=== PATIENT | female | born 1965 | race Caucasian/White ===

== ENCOUNTER 2017-04-17 15:46 | Outpatient (CLI) | payer BC ==
[2017-04-17 16:03] LABS: BASOPHILS % (AUTO) 0.9 %; EOSINOPHILS # (AUTO) 0.1 10^3/uL (0.0-0.7); EOSINOPHILS % (AUTO) 1.2 %; HCT - HEMATOCRIT 38.1 % (37.0-47.0); HGB - HEMOGLOBIN 12.1 g/dL (12.0-16.0); LYMPHOCYTES # (AUTO) 1.3 10^3/uL (1.5-3.5); LYMPHOCYTES % (AUTO) 23.1 %; MEAN CORPUSCULAR HEMOGLOBIN 27.2 pg (27.0-31.0); MEAN CORPUSCULAR HGB CONC 31.9 g/dL (32.0-36.0); MEAN CORPUSCULAR VOLUME 85.3 fL (81.0-99.0); MEAN PLATELET VOLUME 8.1 fL (7.9-10.8); MONOCYTES # (AUTO) 0.6 10^3/uL (0.0-1.0); MONOCYTES % (AUTO) 10.9 %; NEUTROPHILS # (AUTO) 3.5 10^3/uL (1.5-6.6); NEUTROPHILS % (AUTO) 63.9 %; NUCLEATED RED BLOOD CELLS AUTO 0.1 /100WBC; RED BLOOD COUNT 4.46 10^6/uL (4.20-5.40); RED CELL DISTRIBUTION WIDTH 13.5 % (12.0-15.0); UNCORRECTED WHITE BLOOD COUNT 5.4 x10^3/uL; WHITE BLOOD COUNT 5.4 x10^3/uL (4.8-10.8)
[2017-04-17 16:15] LABS: ALBUMIN/GLOBULIN RATIO 1.7 (1.0-2.2); BILIRUBIN,TOTAL 0.6 mg/dL (0.2-1.0); CALCIUM 9.5 mg/dL (8.5-10.3); CREATININE 0.8 mg/dL (0.4-1.0); POTASSIUM 3.7 mmol/L (3.5-5.0); TOTAL PROTEIN 7.3 g/dL (6.7-8.2)
[2017-04-17] MEDS ORDERED: IOPAMIDOL-300 100 ML VIAL IVP ONE (17:11)
[2017-04-17] MEDS ORDERED: IOPAMIDOL-300 50 ML VIAL PO ONE (17:11)
--- NOTE | 2017-04-17 18:41 | CT Preliminary Report ---
Exam: CT Abdomen/Pelvis W/ IMPRESSION: 1. Colonic diverticulosis. 2. No acute abnormality to account for this lady's presenting symptoms. RAD[facility] The above findings were discussed with Suleiman Lombardo, by Dr. Michell Toth at 18:43 hrs on 04/17/17. SITE ID: [id number]
--- NOTE | 2017-04-17 19:24 | CT Report ---
EXAM: CT ABDOMEN AND PELVIS EXAM DATE: 04/17/2017 05:19 PM. CLINICAL HISTORY: History of diverticulitis. Patient presents with left lower quadrant pain. COMPARISONS: 12/07/2015.. TECHNIQUE: Routine helical CT imaging was performed through the abdomen and pelvis. IV contrast: 100 mL Isovue-300. Enteric contrast: Yes. Reconstructions: Coronal and sagittal. In accordance with CT protocol optimization, one or more of the following dose reduction techniques w ere utilized for this exam: automated exposure control, adjustment of mA and/or KV based on patient s ize, or use of iterative reconstructive technique. FINDINGS: Lung Bases: Unremarkable. Liver: Normal. No masses. Gallbladder/Bile Ducts: Unremarkable. Spleen: Normal. Pancreas: Normal. Adrenal Glands: Normal. Kidneys: 1 x 2 cm focal cortical scarring left kidney. Bilateral extrarenal pelvises, right greater t wing left. No masses or hydronephrosis. Peritoneal Cavity/Bowel: Diverticula off the colon. Oral contrast extends through to the distal ileum . No free fluid, free air or adenopathy. No masses or acute inflammatory process. The appendix is wel l visualized and normal. Pelvic Organs: 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. No fluid. No stones in the small caliber urinary bladder. No adnexal mas s lesions. Vasculature: No aneurysms or other significant abnormality. Bones: No significant abnormality. Other: None. IMPRESSION: 1. Colonic diverticulosis. 2. No acute abnormality to account for this lady's presenting symptoms. RADIA The above findings were discussed with Suleiman Lombardo, by Dr. Michell Toth at 18:43 hrs on 04/17/17. Referring Provider Line: [phone] SITE ID: [id number]
== END 2017-04-17 15:47 | disposition home or self-care (01) ==
LOC: DI 15:46
PROVIDERS: ATTEND Physician Assistant Medical
DX: R10.32 Left lower quadrant pain (principal); K57.30 Diverticulosis of large intestine without perforation or abscess without bleeding
CPT/HCPCS: 36415; 74177; 80053; 85025; Q9967

== ENCOUNTER 2017-06-19 15:01 | Outpatient (CLI) | payer BC ==
--- NOTE | 2017-06-20 10:05 | Ultrasound Report ---
RIGHT UPPER QUADRANT ULTRASOUND: 06/19/2017 CLINICAL INDICATION: Abdominal pain. TECHNIQUE: Real-time scanning was performed with sales account representative static images obtained. FINDINGS: The liver measures 16.1 cm. An echogenic 0.9 cm nodule is noted in the left lobe, compatib le with a small hemangioma. No suspicious solid hepatic lesion is identified. No intrahepatic biliary dilatation is present. The common bile duct measures 5 mm. The gallbladder is normal. The right kidn ey measures 10.4 cm, and demonstrates an 1.9 cm cyst. No free fluid is present. IMPRESSION: INCIDENTAL HEPATIC HEMANGIOMA. NO EVIDENCE OF CHOLELITHIASIS OR BILIARY OBSTRUCTION. JOB #: [id number] EXT JOB #:[id number]
== END 2017-06-19 15:02 | disposition home or self-care (01) ==
LOC: DI 15:01
PROVIDERS: ATTEND Physician Assistant Medical
DX: R10.11 Right upper quadrant pain (principal)
CPT/HCPCS: 76705

== ENCOUNTER 2017-06-21 09:12 | Day surgery (SDC) | payer BC ==
[2017-06-21] MEDS ORDERED: LACTATED RINGERS 1,000 ML IV ONE (09:42)
--- NOTE | 2017-06-21 11:02 | HISTORY & PHYSICAL EXAMINATION ---
HPI - History of Present Illness HPI Comment/Other: Patient is here for dark stools and chronic GERD. Current Meds: NEXIUM 20 MG CPDR (ESOMEPRAZOLE MAGNESIUM) Take one tablet by mouth daily, one- half hour before evening meal SINGULAIR 10 MG TABS (MONTELUKAST SODIUM) Take one tablet by mouth daily VOLTAREN 1 % GEL (DICLOFENAC SODIUM) Apply 2 grams to right wrist four times daily as needed for pain * THUMB SPICA/TENOSYNOVITIS SPLINT Right wrist, M65.4, #1, length of use: 6 months. RANITIDINE HCL 150 MG TABS (RANITIDINE HCL) Take one tablet by mouth twice daily CARAFATE 1 GM TABS (SUCRALFATE) Mix one tablet in water to make slurry and then drink before meals and bedtime, four times a day BREO ELLIPTA 100-25 MCG/INH INH AEPB (FLUTICASONE FUROATE-VILANTEROL) One puff daily NASACORT ALLERGY 24HR 55 MCG/ACT NASAL AERO (TRIAMCINOLONE ACETONIDE) Inhale one spray each nostril twice daily ALBUTEROL SULFATE 0.083 % NEBU (ALBUTEROL SULFATE) Use one ampule via nebulizer every four hrs as needed for wheeze VENTOLIN HFA 108 (90 BASE) MCG/ACT INH AERS (ALBUTEROL SULFATE) Inhale two actuations every four hours as needed for wheeze OXYBUTYNIN CHLORIDE 5 MG TABS (OXYBUTYNIN CHLORIDE) Take one tablet by mouth twice daily as needed for overactive bladder symptoms CALTRATE 600+D 600-400 MG-UNIT TABS (CALCIUM CARBONATE-VITAMIN D) one po twice a day VITAMIN D 2000 UNIT TABS (CHOLECALCIFEROL) 1 po daily Allergies: FOSAMAX (Critical) VICODIN (Critical) * IPATROPIUM (Severe) Past Medical History: Reviewed history from 12/09/2013 and no changes required: Fosamax causes chest pain Vicodin - patient does not recall reaction SOB Asthma Frequent Indigestion Heartburn Acid Reflux Prednisone use Depression Anxiety Panic Attacks Claustrophobia Hx bronchitis, possible asthma as child Past Surgical History: Reviewed history from 08/28/2013 and no changes required: Tonsillectomy as a child Ex lap for endometriosis 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 with left oophorectomy for endometriosis, 1999 Bladder suspension, 2010 Left shoulder biceps tendon repair, 2011; adhesive capsulitis, 2012 Family History Summary: Reviewed history Last on 01/30/2013 and no changes required:05/18/2017 Father (nhan.) - Has Family History of Melanoma - Entered On: 04/17/2017 Mother () - Has a Hx of Heart Disease - Entered On: 05/18/2017 General Comments - FH: Dad - Bernardino Pike - COPD, melanoma, SCC Mother's side with DM, HTN. Uncles: Brain tumors GM: CAD with fatal RI at 57 Both sides: colon polyps Social History: Reviewed history from 05/15/2017 and no changes required: Nonsmoker. . Daughter lives at home. 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 Medications were reviewed with the patient during this visit. Allergies were reviewed with the patient during this visit. Allergies: FOSAMAX (Critical) VICODIN (Critical) * IPATROPIUM (Severe) Physical Exam General: well developed, well nourished, in no acute distress Lungs: clear bilaterally to A & P Heart: regular rate and rhythm, S1, S2 without murmurs, rubs, gallops, or clicks Abdomen: bowel sounds positive; abdomen soft and non-tender without masses, organomegaly, or hernias noted Pulses: pulses normal in all 4 extremities Extremities: no clubbing, cyanosis, edema, or deformity noted with normal full range of motion of all joints Cervical Nodes: no significant adenopathy Psych: alert and cooperative; normal mood and affect; normal attention span and concentration Impression & Recommendations: Problem # 1: Dark tarry stools, chronic GERD Will proceed with EGD and colonoscopy PMH/PSH - Past Medical History Cardiovascular: positive: None Respiratory: positive: Asthma Neuro: positive: Headache/migraine Endocrine/Autoimmune: positive: None GI: positive: GERD : positive: Frequency HEENT: positive: None Psych: positive: Depression Musculoskeletal: positive: Osteoarthritis, Osteoporosis, Chronic back pain Derm: positive: None MRSA Hx?: No - Past Surgical History 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, 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 HEENT: positive: Tonsil/Adenoidectomy Social & Family Hx - Social History Does the pt smoke?: No Smoking Status: Former smoker Does the pt drink ETOH?: Yes ETOH Use: Beer Does the pt have substance abuse?: No Meds/Allgy - Home Medications Home Medications: Ambulatory Orders Medication Instructions Recorded Confirmed Cetirizine HCl [Zyrtec] 10 mg PO DAILY 08/23/13 06/20/17 Omeprazole [PriLOSEC] 20 mg PO BID 08/23/13 06/20/17 Oxybutynin [Ditropan] 5 mg PO BID 08/23/13 06/20/17 Mometasone/Formoterol [Dulera 100 13 gm IH DAILY 02/24/14 06/21/17 Mcg/5 Mcg Inhaler] Montelukast Sodium [Singulair] 10 mg PO DAILY 02/24/14 06/20/17 Albuterol 2 inh PO DAILY PRN 06/20/17 06/20/17 Calcium Carbonate/Vitamin D3 1 tab PO DAILY 06/20/17 06/20/17 [Calcium 600-Vit D3 400 Tablet] - Allergies Allergies/Adverse Reactions: Allergies Allergy/AdvReac Type Severity Reaction Status Date / Time ipratropium Allergy Intermediate Unknown Verified 02/26/14 06:59 acetaminophen [From Vicodin] Allergy Headache Verified 08/23/13 12:31 alendronate sodium Allergy unknown Verified 08/23/13 12:31 [From Fosamax Plus D] cholecalciferol (vitamin D3) Allergy unknown Verified 08/23/13 12:31 [From Fosamax Plus D] hydrocodone bitartrate * Allergy Headache Verified 08/23/13 12:31 [From Vicodin] fluticasone propionate * AdvReac Intermediate epistaxis Verified 02/24/14 08:38 [From Flonase] Exam - Vital Signs Vital Signs: Vital Signs x48h Temp Pulse Resp BP Pulse Ox 06/21/17 09:27 36.6 C 84 16 117/88 H 99
[2017-06-21] MEDS ORDERED: MIDAZOLAM 2 MG/2 ML VIAL IVP ONE (11:03)
[2017-06-21] MEDS ORDERED: fentaNYL 100 MCG/2 ML VIAL IVP ONE (11:03)
[2017-06-21] MEDS ORDERED: BENZOCAINE/TETRACAINE/BUTAMBEN SPRAY 56 GM TOP ONE (11:13)
[2017-06-21 12:20] VITALS: BP 99/66
== END 2017-06-21 09:13 | disposition home or self-care (01) ==
LOC: SDS 09:12
PROVIDERS: ATTEND Surgery
PROC: 0DBK8ZX Excision of Ascending Colon, Via Natural or Artificial Opening Endoscopic, Diagnostic (ICD-10-PCS; principal; 2017-06-21 10:30)
PROC: 0DB78ZX Excision of Stomach, Pylorus, Via Natural or Artificial Opening Endoscopic, Diagnostic (ICD-10-PCS; 2017-06-21 10:30)
DX: K92.1 Melena (principal); K29.50 Unspecified chronic gastritis without bleeding; D12.2 Benign neoplasm of ascending colon; K57.30 Diverticulosis of large intestine without perforation or abscess without bleeding; K64.8 Other hemorrhoids; K21.9 Gastro-esophageal reflux disease without esophagitis; J45.909 Unspecified asthma, uncomplicated; M81.0 Age-related osteoporosis without current pathological fracture; Z88.5 Allergy status to narcotic agent; Z82.49 Family history of ischemic heart disease and other diseases of the circulatory system; Z80.8 Family history of malignant neoplasm of other organs or systems; Z90.710 Acquired absence of both cervix and uterus; Z90.721 Acquired absence of ovaries, unilateral; Z87.891 Personal history of nicotine dependence; Z83.3 Family history of diabetes mellitus; Z83.71 Family history of colonic polyps
CPT/HCPCS: 43239; 45385; A9270; J7120; 88305

== ENCOUNTER 2017-06-29 08:47 | Outpatient (CLI) | payer BC ==
--- NOTE | 2017-06-29 13:51 | Nuclear Medicine Report ---
EXAM: HEPATOBILIARY SCAN WITH CCK/KINEVAC ADMINISTRATION EXAM DATE: 06/29/2017 09:22 AM. CLINICAL HISTORY: ABDOMINAL Pain, right UPPER QUADRANT. COMPARISON: Abdomen/pelvis CT 04/17/2017. TECHNIQUE: Following the intravenous administration of 6.9 mCi of Tc99m Mebrofenin, a hepatobiliary s can was done centered on the liver and gallbladder in multiple sequential images and projections. Following the intravenous administration of 1.65 mcg of CCK/ Kinevac over the course of approximately 30 minutes, dynamic imaging was done and the gallbladder ejection fraction was calculated. FINDINGS: Normal extraction of tracer from the blood pool indicating normal hepatocellular function. The liver size and shape is grossly within normal limits. There is activity visualized within the bile ducts, gallbladder, and small bowel within the first tawanda r. With CCK administration, the gallbladder demonstrates an effective contraction. The gallbladder eject ion fraction is calculated to be 87%, well above the lower limit of normal of 38% for a 60-minute inj ection. No enterogastric bile reflux was observed. IMPRESSION: 1. Patent cystic duct. 2. Patent common bile duct. 3. Negative for acute or chronic cholecystitis. 4. No enterogastric bile reflux. 5. Normal gallbladder ejection fraction of 87%. [facility] Referring Provider Line: [phone] SITE ID: [id number]
== END 2017-06-29 08:48 | disposition home or self-care (01) ==
LOC: DI 08:47
PROVIDERS: ATTEND Physician Assistant Medical
DX: R10.11 Right upper quadrant pain (principal)
CPT/HCPCS: 78227; A9537

== ENCOUNTER 2018-02-16 10:18 | Outpatient (CLI) | payer BC | END 2018-02-16 10:19 | disposition critical access hospital (66) | LOC: EMS 10:18 | PROVIDERS: ATTEND Surgery | DX: R07.9 Chest pain, unspecified (principal) | CPT/HCPCS: A0425; A0427 ==

== ENCOUNTER 2018-02-16 10:40 | Emergency (ER) | payer BC ==
[2018-02-16 10:54] LABS: BASOPHILS % (AUTO) 1.2 %; EOSINOPHILS # (AUTO) 0.1 10^3/uL (0.0-0.7); HGB - HEMOGLOBIN 13.1 g/dL (12.0-16.0); LYMPHOCYTES # (AUTO) 1.1 10^3/uL (1.5-3.5); LYMPHOCYTES % (AUTO) 26.1 %; MEAN CORPUSCULAR HEMOGLOBIN 27.6 pg (27.0-31.0); MEAN CORPUSCULAR HGB CONC 32.8 g/dL (32.0-36.0); MEAN PLATELET VOLUME 7.7 fL (7.9-10.8); MONOCYTES # (AUTO) 0.5 10^3/uL (0.0-1.0); MONOCYTES % (AUTO) 11.5 %; NEUTROPHILS # (AUTO) 2.5 10^3/uL (1.5-6.6); NEUTROPHILS % (AUTO) 59.2 %; PLT - PLATELET COUNT 244 10^3/uL (130-450); RED BLOOD COUNT 4.74 10^6/uL (4.20-5.40); RED CELL DISTRIBUTION WIDTH 13.4 % (12.0-15.0); WHITE BLOOD COUNT 4.3 x10^3/uL (4.8-10.8)
--- NOTE | 2018-02-16 11:03 | ED Physician Documentation ---
PD HPI CHEST PAIN - Stated complaint Stated Complaint: CP - Chief complaint Chief Complaint: Cardiac - History obtained from History obtained from: Patient, Family, EMS - History of Present Illness Timing - onset: How many hours ago (1) Timing - onset during: Eating Timing - duration: Minutes (2) Timing - details: Abrupt onset Pain level max: 3 Pain level now: 0 Quality: Sharp Location: Substernal Radiation: Other (non-radiating) Improved by: Other (nothing) Worsened by: Other (nothing) Associated symptoms: Nausea, Other (tingling in her hands and legs.) Similar symptoms before: Diagnosis (states sees Dr. Macias and recently had a holter monitor performed, doesn't know results.) Recently seen: Not recently seen - Additional information Additional information: States feels her heart racing during these events. No ACS history. Review of Systems Ten Systems: 10 systems reviewed and negative Constitutional: denies: Fever, Chills Ears: denies: Ear pain Nose: denies: Rhinorrhea / runny nose, Congestion Throat: denies: Sore throat Cardiac: reports: Chest pain / pressure, Palpitations Respiratory: denies: Dyspnea, Cough, Hemoptysis, Wheezing GI: denies: Abdominal Pain, Nausea, Vomiting, Diarrhea Skin: denies: Rash Musculoskeletal: denies: Neck pain, Back pain Neurologic: denies: Headache PD PAST MEDICAL HISTORY - Past Medical History Cardiovascular: None Respiratory: Asthma Neuro: Headache/migraine Endocrine/Autoimmune: None GI: GERD : Frequency HEENT: None Psych: None Musculoskeletal: Osteoporosis, Chronic back pain Derm: None - Past Surgical History 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, 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 HEENT: Tonsil/Adenoidectomy - Present Medications Home Medications: Ambulatory Orders Medication Instructions Recorded Confirmed Cetirizine HCl [Zyrtec] 10 mg PO DAILY 08/23/13 06/20/17 Omeprazole [PriLOSEC] 20 mg PO BID 08/23/13 06/20/17 Oxybutynin [Ditropan] 5 mg PO BID 08/23/13 06/20/17 Montelukast Sodium [Singulair] 10 mg PO DAILY 02/24/14 06/20/17 Albuterol 2 inh PO DAILY PRN 06/20/17 06/20/17 Calcium Carbonate/Vitamin D3 1 tab PO DAILY 06/20/17 06/20/17 [Calcium 600-Vit D3 400 Tablet] - Allergies Allergies/Adverse Reactions: Allergies Allergy/AdvReac Type Severity Reaction Status Date / Time ipratropium Allergy Intermediate Unknown Verified 02/26/14 06:59 acetaminophen [From Vicodin] Allergy Headache Verified 08/23/13 12:31 alendronate sodium Allergy unknown Verified 02/16/18 10:45 [From Fosamax Plus D] cholecalciferol (vitamin D3) Allergy unknown Verified 08/23/13 12:31 [From Fosamax Plus D] hydrocodone bitartrate * Allergy Headache Verified 08/23/13 12:31 [From Vicodin] fluticasone propionate * AdvReac Intermediate epistaxis Verified 02/24/14 08:38 [From Flonase] - Social History Does the pt smoke?: No Smoking Status: Never smoker Does the pt drink ETOH?: Yes Does the pt have substance abuse?: No PD ED PE NORMAL - Vitals Vital signs reviewed: Yes - General General: Alert and oriented X 3, No acute distress, Well developed/nourished - HEENT HEENT: Moist mucous membranes, Pharynx benign - Neck Neck: Supple, no meningeal sign - Cardiac Cardiac: RRR, No murmur, Strong equal pulses - Respiratory Respiratory: No respiratory distress, Clear bilaterally - Abdomen Abdomen: Soft, Non tender, Non distended - Derm Derm: Warm and dry, No rash - Extremities Extremities: No edema, No calf tenderness / cord - Neuro Neuro: Alert and oriented X 3 - Psych Psych: Normal mood, Normal affect Results - Vitals Vitals: Vital Signs - 24 hr 02/16/18 02/16/18 10:41 13:35 Temperature 36 C L 36.4 C L Heart Rate 72 66 Respiratory 18 16 Rate Blood Pressure 122/85 H 102/73 O2 Saturation 100 100 Oxygen O2 Source Room air - EKG (time done) 1042 Rate: Rate (enter#) (70) Rhythm: NSR [place]: Normal Intervals: Normal [place] QRS: Normal Ischemia: Normal ST segments 1318 Rate: Rate (enter#) (61) Rhythm: NSR [place]: Normal Intervals: Normal [place] QRS: Normal Ischemia: Normal ST segments - Labs Labs: Laboratory Tests 02/16/18 02/16/18 02/16/18 10:48 10:48 10:48 WBC 4.3 L RBC 4.74 Hgb 13.1 Hct 39.8 MCV 84.0 MCH 27.6 MCHC 32.8 RDW 13.4 Plt Count 244 MPV 7.7 L Neut # 2.5 Lymph # 1.1 L [place] # 0.5 Eos # 0.1 Baso # 0.0 Absolute Nucleated RBC 0.00 Nucleated RBC % 0.0 Sodium 138 Potassium 3.7 Chloride 104 Carbon Dioxide 24 Anion Gap 10.0 BUN 15 Creatinine 0.8 Estimated GFR (MDRD) 75 L Glucose 82 Calcium 9.4 Total Bilirubin 0.6 AST 23 ALT 16 Alkaline Phosphatase 76 Troponin I < 0.04 Total Protein 7.1 Albumin 4.3 Globulin 2.8 Albumin/Globulin Ratio 1.5 Lipase 12 L 02/16/18 12:46 WBC RBC Hgb Hct MCV MCH MCHC RDW Plt Count MPV Neut # Lymph # [place] # Eos # Baso # Absolute Nucleated RBC Nucleated RBC % Sodium Potassium Chloride Carbon Dioxide Anion Gap BUN Creatinine Estimated GFR (MDRD) Glucose Calcium Total Bilirubin AST ALT Alkaline Phosphatase Troponin I < 0.04 Total Protein Albumin Globulin Albumin/Globulin Ratio Lipase - Rads (name of study) cxr Radiology: Prelim report reviewed, EMP read contemporaneously, See rad report ( No acute disease) PD MEDICAL DECISION MAKING - ED course Complexity details: reviewed old records, reviewed results, re-evaluated patient , considered differential (No ST elevation [place], no aortic dissection, no PE, no tension pneumothorax, no aortic aneurysm), d/w patient, d/w family ED course: Patient is a 52-year-old female who presents to the emergency department with atypical chest pain. No history of cardiac disease, but does have a history of palpitations which feel similar to the symptoms she is experiencing. Recent Holter monitor showed supraventricular tachycardia, intermittently and lasting for only a short period of time. No SVT here. No other arrhythmias noted on Holter monitoring. We will have her follow-up with her doctor for further evaluation and care. Patient counseled regarding signs and symptoms for which I believe and urgent re-evaluation would be necessary. Patient with good understanding of and agreement to plan and is comfortable going home at this time This document was made in part using voice recognition software. While efforts are made to proofread this document, sound alike and grammatical errors may occur. Departure - Departure Disposition: 01 Home, Self Care Clinical Impression: Chest pain Qualifiers: Chest pain type: unspecified Qualified Code(s): R07.9 - Chest pain, unspecified Condition: Good Instructions: ED Chest Pain Atypical Unkn Cause Follow-Up: Ankit Dutta MD [Physician No Access] - Within 1 week Lo Napier PA-C [Primary Care Provider] - Within 1 week Comments: Return if you worsen. Continue your medications at home. Please follow-up with Dr. Dutta for the results of your Holter monitor. Discharge Date/Time: 02/16/18 13:36
[2018-02-16 11:08] LABS: ALBUMIN 4.3 g/dL (3.2-5.5); ALBUMIN/GLOBULIN RATIO 1.5 (1.0-2.2); BILIRUBIN,TOTAL 0.6 mg/dL (0.2-1.0); CALCIUM 9.4 mg/dL (8.5-10.3); CREATININE 0.8 mg/dL (0.4-1.0); TOTAL PROTEIN 7.1 g/dL (6.7-8.2)
--- NOTE | 2018-02-16 11:37 | XRAY Report ---
EXAM: CHEST RADIOGRAPHY EXAM DATE: 02/16/2018 11:30 AM. CLINICAL HISTORY: Chest pain . COMPARISON: Two-view chest 02/24/2014. TECHNIQUE: 2 views. FINDINGS: Lungs/Pleura: No focal opacities evident. No pleural effusion. No pneumothorax. Normal volumes. Mediastinum: Heart and mediastinal contours are unremarkable. IMPRESSION: No evidence of acute thoracic process [facility] Referring Provider Line: [phone] SITE ID: [id number]
[2018-02-16 13:36] VITALS: BP 102/73
== END 2018-02-16 13:36 | disposition home or self-care (01) ==
LOC: EDUNIT# → ED 10:40
DX: R07.89 Other chest pain (principal); R00.2 Palpitations; K21.9 Gastro-esophageal reflux disease without esophagitis
CPT/HCPCS: 36415; 71046; 80053; 83690; 84484; 85025; 93005; 99283

== ENCOUNTER 2018-05-26 11:31 | Outpatient (CLI) | payer BC | END 2018-05-26 11:32 | disposition home or self-care (01) | LOC: DI 11:31 | PROVIDERS: ATTEND Internal Medicine Cardiovascular Disease | DX: R42 Dizziness and giddiness (principal); R00.1 Bradycardia, unspecified; I51.7 Cardiomegaly | CPT/HCPCS: 93306 ==

== ENCOUNTER 2018-10-21 09:17 | Outpatient (CLI) | payer BC ==
[2018-10-21 15:01] LABS: BASOPHILS % (AUTO) 1.1 %; EOSINOPHILS # (AUTO) 0.1 10^3/uL (0.0-0.7); EOSINOPHILS % (AUTO) 2.7 %; HGB - HEMOGLOBIN 12.2 g/dL (12.0-16.0); LYMPHOCYTES % (AUTO) 25.4 %; MEAN CORPUSCULAR HEMOGLOBIN 28.2 pg (27.0-31.0); MEAN CORPUSCULAR HGB CONC 32.6 g/dL (32.0-36.0); MEAN CORPUSCULAR VOLUME 86.4 fL (81.0-99.0); MEAN PLATELET VOLUME 8.4 fL (7.9-10.8); MONOCYTES # (AUTO) 0.5 10^3/uL (0.0-1.0); MONOCYTES % (AUTO) 12.7 %; NEUTROPHILS # (AUTO) 2.3 10^3/uL (1.5-6.6); NEUTROPHILS % (AUTO) 58.1 %; PLT - PLATELET COUNT 236 10^3/uL (130-450); RED BLOOD COUNT 4.34 10^6/uL (4.20-5.40)
[2018-10-21 15:39] LABS: ALBUMIN 4.1 g/dL (3.2-5.5); ALBUMIN/GLOBULIN RATIO 1.6 (1.0-2.2); ALKALINE PHOSPHATASE 58 IU/L (42-121); ALT ALANINE AMINOTRANSFERASE 12 IU/L (10-60); AST ASPARTATE AMINOTRANSFERASE 17 IU/L (10-42); BILIRUBIN,TOTAL 0.5 mg/dL (0.2-1.0); BUN - BLOOD UREA NITROGEN 16 mg/dL (6-20); CARBON DIOXIDE - CO2 29 mmol/L (21-32); CHLORIDE 102 mmol/L (101-111); CHOL/HDL RATIO 2.9 (<4.4); CHOLESTEROL 204 mg/dL; CREATININE 0.5 mg/dL (0.4-1.0); GFR - MDRD 129 (>89); GLUCOSE 91 mg/dL (70-100); HDL CHOLESTEROL 71 mg/dL; LDL CHOLESTEROL,CALCULATED 121 mg/dL; LDL/HDL RATIO 1.7 (<4.4); SODIUM 138 mmol/L (135-145); TOTAL PROTEIN 6.7 g/dL (6.7-8.2); VLDL CHOLESTEROL 12 mg/dL
[2018-10-22 12:12] LABS: HEPATITIS C ANTIBODY NON-REACTIVE (NON-REACTIVE)
== END 2018-10-21 09:18 ==
LOC: LAB.WCP 09:17
PROVIDERS: ATTEND Physician Assistant Medical
DX: Z00.00 Encounter for general adult medical examination without abnormal findings (principal); Z11.59 Encounter for screening for other viral diseases
CPT/HCPCS: 36415; 80053; 80061; 83721; 84443; 85025; 86803

== ENCOUNTER 2019-09-26 12:06 | Emergency (ER) | payer BC ==
--- NOTE | 2019-09-26 13:10 | XRAY Report ---
Reason: cough Procedure Date: 09/26/2019 Accession Number: [id number] / [id number] Procedure: XR - Chest 2 View X-Ray CPT Code: 01328 Final Report FULL RESULT: EXAM: CHEST RADIOGRAPHY, 2 VIEWS EXAM DATE: 09/26/2019 12:31 PM. CLINICAL HISTORY: Cough in a 54-year-old female, very run down. COMPARISON: CHEST 2 VIEW 02/16/2018 11:16 AM. CHEST 2 VIEW PA/LAT 02/24/2014 9:28 AM. TECHNIQUE: Upright PA and lateral views. FINDINGS: Lungs/Pleura: No focal opacities evident. No pleural effusion. No pneumothorax. Normal volumes. Mediastinum: Heart size normal, without adenopathy or pulmonary vascular congestion. Other: Trachea is midline. Osseous structures are unremarkable for age. IMPRESSION: Normal chest for age and body size. No pneumonia, CHF or other demonstrated cause for the patient's symptoms. RADIA
[2019-09-26] MEDS ORDERED: IBUPROFEN 600 MG TABLET PO STA (13:45)
[2019-09-26] MEDS ORDERED: CHERRY SYRUP 10 ML UDC PO ONE (13:45)
[2019-09-26] MEDS ORDERED: DEXAMETHASONE 10 MG/ML VIAL PO STA (13:45)
[2019-09-26] MEDS ORDERED: ACETAMINOPHEN 325 MG TABLET PO STA (13:45)
--- NOTE | 2019-09-26 13:48 | ED Physician Documentation ---
History of Present Illness - Stated complaint Stated Complaint: COUGH/FEVER - Chief complaint Chief Complaint: Resp - Additonal information Additional information: This is a 54-year-old female who presents with general malaise,, cough product abril of green sputum. Patient states that she has had some general malaise for several days, she began to cough and yesterday, is also had some congestion and clear rhinorrhea. Cough is worsened and she is coughing up a large amount of green sputum. She has not had a measured fever, but she feels some subjective fever from time to time. She took 1 Tessalon Perles last night, no other medications for this. She has had some generalized chest soreness after coughing, no specific chest pain. No shortness of breath, no leg swelling. Review of Systems Respiratory: reports: Cough. 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 HEENT: Tonsil/Adenoidectomy - Present Medications Home Medications: Ambulatory Orders Medication Instructions Recorded Confirmed Cetirizine HCl [Zyrtec] 10 mg PO DAILY 08/23/13 06/20/17 Omeprazole [PriLOSEC] 20 mg PO BID 08/23/13 06/20/17 Oxybutynin [Ditropan] 5 mg PO BID 08/23/13 06/20/17 Montelukast Sodium [Singulair] 10 mg PO DAILY 02/24/14 06/20/17 Albuterol 2 inh PO DAILY PRN 06/20/17 06/20/17 Calcium Carbonate/Vitamin D3 1 tab PO DAILY 06/20/17 06/20/17 [Calcium 600-Vit D3 400 Tablet] Albuterol Sulf [Ventolin Hfa 1 - 2 puffs INH Q4HR PRN #1 inhaler 09/26/19 Inhaler] Benzonatate [Tessalon Perle] 100 - 200 mg PO TID PRN #30 capsule 09/26/19 - Allergies Allergies/Adverse Reactions: Allergies Allergy/AdvReac Type Severity Reaction Status Date / Time ipratropium Allergy Intermediate Unknown Verified 09/26/19 12:17 acetaminophen [From Vicodin] Allergy Headache Verified 09/26/19 12:17 alendronate sodium Allergy unknown Verified 09/26/19 12:17 [From Fosamax Plus D] cholecalciferol (vitamin D3) Allergy unknown Verified 09/26/19 12:17 [From Fosamax Plus D] hydrocodone bitartrate * Allergy Headache Verified 09/26/19 12:17 [From Vicodin] fluticasone propionate * AdvReac Intermediate epistaxis Verified 09/26/19 12:17 [From Flonase] - Social History Does the pt smoke?: No Smoking Status: Never smoker Does the pt drink ETOH?: Yes Does the pt have substance abuse?: No PD ED PE NORMAL - Vitals Vital signs reviewed: Yes - General General: Alert and oriented X 3 - HEENT HEENT: Other (Posterior pharynx is erythematous, uvula is midline, no exudate.) - Neck Neck: Supple, no meningeal sign - Cardiac Cardiac: RRR - Respiratory Respiratory: No respiratory distress, Clear bilaterally, Other (Intermittent cough) - Abdomen Abdomen: Normal bowel sounds, Soft, Non tender, Non distended - Derm Derm: Warm and dry - Extremities Extremities: No deformity - Neuro Neuro: Alert and oriented X 3 - Psych Psych: Normal mood, Normal affect Results - Vitals Vitals: Vital Signs - 24 hr 09/26/19 12:12 Temperature 37.7 C H Heart Rate 80 Respiratory 17 Rate Blood Pressure 118/85 H O2 Saturation 100 Oxygen O2 Source Room air - EKG (time done) 14:03 Other comments: Other comments (Rate 84, rhythm sinus, there is no ST segment elevation or depression, No T wave inversions.) - Rads (name of study) Chest x-ray Radiology: Other (No acute cardiopulmonary abnormality) PD MEDICAL DECISION MAKING - ED course ED course: Patient presents with symptoms that are consistent with viral URI, her symptoms been ongoing for several days, making pneumonia unlikely, chest x-ray is unremarkable, she has no chest pain, just some chest soreness with a cough, EKG shows no signs of ischemia, making ACS highly likely, especially given her infectious symptoms. Pulmonary embolism also highly unlikely given she has no shortness of breath, she has infectious symptoms, no signs of DVT, normal heart rate and oxygen saturation. She appears nontoxic I discussed supportive care, return precautions, and the need for PCP follow-up. I also gave her a dose of steroids given she has a history of asthma, and I refilled her albuterol inhaler, although she is not having wheezing at this time. Patient verbalized understanding the plan was discharged home in the care of family. Departure - Departure Disposition: Home, Self Care Clinical Impression: Bronchitis Condition: Good Instructions: ED Upper Resp Infec No Abx Tx Follow-Up: Lo Napier PA-C [Primary Care Provider] - Within 1 week Prescriptions: Albuterol Sulf [Ventolin Hfa Inhaler] 1 - 2 puffs INH Q4HR PRN #1 inhaler PRN Reason: Shortness Of Air/Wheezing Benzonatate [Tessalon Perle] 100 - 200 mg PO TID PRN #30 capsule PRN Reason: Cough Comments: You appear to have a bronchitis which is likely caused by a virus. Your chest x-ray does not show signs of pneumonia. You may take Tylenol 650 mg every 6 hours, and ibuprofen 600mg every 6 hours as needed for discomfort. We gave you a steroid today which should help with some of your inflammation, you may also use the Tessalon Perles for cough. Try tea with honey for cough as well. Get plenty of rest and adequate fluids. Return to the emergency department if you are having shortness of breath, chest pain, or any other concerning symptoms.
[2019-09-26 14:21] VITALS: BP 118/75
== END 2019-09-26 14:20 | disposition home or self-care (01) ==
LOC: ED 12:06
DX: J40 Bronchitis, not specified as acute or chronic (principal)
CPT/HCPCS: 71046; 93005; 99283; 99284; A9270

== ENCOUNTER 2020-01-09 09:11 | Outpatient (CLI) | payer BC ==
[2020-01-09 13:26] LABS: BASOPHILS # (AUTO) 0.1 10^3/uL (0.0-0.1); BASOPHILS % (AUTO) 1.1 %; EOSINOPHILS # (AUTO) 0.1 10^3/uL (0.0-0.7); EOSINOPHILS % (AUTO) 1.9 %; HGB - HEMOGLOBIN 11.8 g/dL (12.0-16.0); LYMPHOCYTES # (AUTO) 1.1 10^3/uL (1.5-3.5); LYMPHOCYTES % (AUTO) 24.2 %; MEAN CORPUSCULAR HGB CONC 30.6 g/dL (32.0-36.0); MEAN CORPUSCULAR VOLUME 91.7 fL (81.0-99.0); MEAN PLATELET VOLUME 10.4 fL (7.9-10.8); MONOCYTES # (AUTO) 0.5 10^3/uL (0.0-1.0); MONOCYTES % (AUTO) 9.7 %; NEUTROPHILS # (AUTO) 2.9 10^3/uL (1.5-6.6); NEUTROPHILS % (AUTO) 62.7 %; PLT - PLATELET COUNT 249 10^3/uL (130-450); RED BLOOD COUNT 4.21 10^6/uL (4.20-5.40); RED CELL DISTRIBUTION WIDTH 13.6 % (12.0-15.0); WHITE BLOOD COUNT 4.6 x10^3/uL (4.8-10.8)
[2020-01-09 13:57] LABS: ALBUMIN 4.4 g/dL (3.2-5.5); ALBUMIN/GLOBULIN RATIO 1.8 (1.0-2.2); ALKALINE PHOSPHATASE 73 IU/L (42-121); ALT ALANINE AMINOTRANSFERASE 15 IU/L (10-60); AST ASPARTATE AMINOTRANSFERASE 19 IU/L (10-42); BILIRUBIN,TOTAL 0.8 mg/dL (0.2-1.0); BUN - BLOOD UREA NITROGEN 16 mg/dL (6-20); CALCIUM 9.2 mg/dL (8.5-10.3); CARBON DIOXIDE - CO2 27 mmol/L (21-32); CHLORIDE 101 mmol/L (101-111); CHOL/HDL RATIO 2.5 (<4.4); CHOLESTEROL 201 mg/dL; CREATININE 0.8 mg/dL (0.4-1.0); GFR - MDRD 74 (>89); GLUCOSE 91 mg/dL (70-100); HDL CHOLESTEROL 80 mg/dL; LDL CHOLESTEROL,CALCULATED 106 mg/dL; LDL/HDL RATIO 1.3 (<4.4); SODIUM 140 mmol/L (135-145); TOTAL PROTEIN 6.9 g/dL (6.7-8.2); VLDL CHOLESTEROL 15 mg/dL
== END 2020-01-09 23:59 | disposition home or self-care (01) ==
LOC: LAB.WCP 09:11
PROVIDERS: ATTEND Physician Assistant Medical
DX: J45.909 Unspecified asthma, uncomplicated (principal); N39.41 Urge incontinence; K21.9 Gastro-esophageal reflux disease without esophagitis; F32.9 Major depressive disorder, single episode, unspecified; G43.909 Migraine, unspecified, not intractable, without status migrainosus
CPT/HCPCS: 36415; 80053; 80061; 83721; 84443; 85025

== ENCOUNTER 2021-02-01 08:00 | Outpatient (CLI) | payer BC ==
[2021-02-01 12:08] LABS: BASOPHILS # (AUTO) 0.1 10^3/uL (0.0-0.1); BASOPHILS % (AUTO) 1.7 %; EOSINOPHILS # (AUTO) 0.1 10^3/uL (0.0-0.7); EOSINOPHILS % (AUTO) 3.6 %; HCT - HEMATOCRIT 39.9 % (37.0-47.0); LYMPHOCYTES % (AUTO) 29.1 %; MEAN CORPUSCULAR HEMOGLOBIN 27.2 pg (27.0-31.0); MEAN CORPUSCULAR HGB CONC 30.1 g/dL (32.0-36.0); MEAN CORPUSCULAR VOLUME 90.5 fL (81.0-99.0); MEAN PLATELET VOLUME 10.5 fL (7.9-10.8); MONOCYTES # (AUTO) 0.3 10^3/uL (0.0-1.0); MONOCYTES % (AUTO) 9.2 %; NEUTROPHILS % (AUTO) 55.8 %; PLT - PLATELET COUNT 259 10^3/uL (130-450); RED BLOOD COUNT 4.41 10^6/uL (4.20-5.40); RED CELL DISTRIBUTION WIDTH 13.8 % (12.0-15.0); WHITE BLOOD COUNT 3.6 x10^3/uL (4.8-10.8)
[2021-02-01 12:32] LABS: ALBUMIN 4.3 g/dL (3.2-5.5); ALBUMIN/GLOBULIN RATIO 1.8 (1.0-2.2); ALKALINE PHOSPHATASE 72 IU/L (42-121); ALT ALANINE AMINOTRANSFERASE 15 IU/L (10-60); AST ASPARTATE AMINOTRANSFERASE 19 IU/L (10-42); BILIRUBIN,TOTAL 0.5 mg/dL (0.2-1.0); BUN - BLOOD UREA NITROGEN 17 mg/dL (6-20); CALCIUM 9.5 mg/dL (8.5-10.3); CARBON DIOXIDE - CO2 27 mmol/L (21-32); CHLORIDE 102 mmol/L (101-111); CHOL/HDL RATIO 2.6 (<4.4); CHOLESTEROL 207 mg/dL; CREATININE 0.7 mg/dL (0.4-1.0); GFR - MDRD 87 (>89); GLUCOSE 94 mg/dL (70-100); HDL CHOLESTEROL 81 mg/dL; LDL CHOLESTEROL,CALCULATED 110 mg/dL; LDL/HDL RATIO 1.4 (<4.4); POTASSIUM 4.2 mmol/L (3.5-5.0); SODIUM 138 mmol/L (135-145); TOTAL PROTEIN 6.7 g/dL (6.7-8.2); TRIGLYCERIDES 81 mg/dL; VLDL CHOLESTEROL 16 mg/dL
[2021-02-01 12:34] LABS: THYROID STIMULATING HORMONE 1.91 uIU/mL (0.34-5.60)
== END 2021-02-01 23:59 | disposition home or self-care (01) ==
LOC: LAB.WCP 08:00
PROVIDERS: ATTEND Physician Assistant Medical
DX: Z00.00 Encounter for general adult medical examination without abnormal findings (principal); G43.909 Migraine, unspecified, not intractable, without status migrainosus; F32.9 Major depressive disorder, single episode, unspecified; J45.909 Unspecified asthma, uncomplicated
CPT/HCPCS: 36415; 80053; 80061; 83721; 84443; 85025

== ENCOUNTER 2021-09-17 11:34 | Outpatient (CLI) | payer BC | END 2021-09-17 11:35 | disposition critical access hospital (66) | LOC: EMS 11:34 | DX: U07.1 COVID-19 (principal) | CPT/HCPCS: A0425; A0429 ==

== ENCOUNTER 2021-09-17 11:55 | Emergency (ER) | payer BC ==
--- NOTE | 2021-09-17 12:18 | ED Physician Documentation ---
History of Present Illness - Stated complaint Stated Complaint: C+ - History obtained from History obtained from: Patient - Additonal information Additional information: This is a 56-year-old female with a past medical history of asthma who presents with known Covid infection. She tested positive on 09/12/21 after becoming symptomatic on 09/11/21. She is not vaccinated. She has had progressive cough, chest pain, body aches, weakness, nausea, vomiting and inability to tolerate p.o. She feels weak and as though so she might pass out. She has not taken any specific treatment. Review of Systems Constitutional: reports: Myalgias, Fatigue Nose: reports: Rhinorrhea / runny nose, Congestion, Sinus pressure / pain Throat: reports: Sore throat. denies: Oral lesions / sores, Swollen tonsils Cardiac: reports: Chest pain / pressure Respiratory: reports: Dyspnea, Cough. denies: Hemoptysis, Wheezing GI: reports: Nausea, Vomiting. denies: Abdominal Pain, Abdominal Swelling, Constipation, Diarrhea, Hematemesis, Bloody / black stool : reports: Reviewed and negative Skin: reports: Reviewed and negative Musculoskeletal: reports: Reviewed and negative Neurologic: reports: Generalized weakness, Near syncope Psychiatric: reports: Reviewed and negative Endocrine: reports: Reviewed and negative PD PAST MEDICAL HISTORY - Past Medical History Past Medical History: Yes Cardiovascular: None Respiratory: Asthma Endocrine/Autoimmune: None GI: GERD : Frequency HEENT: None Psych: None Musculoskeletal: Osteoporosis, Chronic back pain Derm: None - Past Surgical History Past Surgical History: Yes /[employer]: Tubal ligation, 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 HEENT: Tonsil/Adenoidectomy - Present Medications Home Medications: Ambulatory Orders Medication Instructions Recorded Confirmed Cetirizine HCl [Zyrtec] 10 mg PO DAILY 08/23/13 06/20/17 Omeprazole [PriLOSEC] 20 mg PO BID 08/23/13 06/20/17 Oxybutynin [Ditropan] 5 mg PO BID 08/23/13 06/20/17 Montelukast Sodium [Singulair] 10 mg PO DAILY 02/24/14 06/20/17 Albuterol 2 inh PO DAILY PRN 06/20/17 06/20/17 Calcium Carbonate/Vitamin D3 1 tab PO DAILY 06/20/17 06/20/17 [Calcium 600-Vit D3 400 Tablet] Albuterol Sulf [Ventolin Hfa 1 - 2 puffs INH Q4HR PRN #1 inhaler 09/26/19 Inhaler] Benzonatate [Tessalon Perle] 100 - 200 mg PO TID PRN #30 capsule 09/26/19 Ondansetron Odt [Zofran] 4 mg TL Q6H PRN #10 tablet 09/17/21 - Allergies Allergies/Adverse Reactions: Allergies Allergy/AdvReac Type Severity Reaction Status Date / Time ipratropium Allergy Intermediate Unknown Verified 09/17/21 12:32 acetaminophen [From Vicodin] Allergy Headache Verified 09/17/21 12:32 alendronate sodium Allergy unknown Verified 09/17/21 12:32 [From Fosamax Plus D] cholecalciferol (vitamin D3) Allergy unknown Verified 09/17/21 12:32 [From Fosamax Plus D] hydrocodone bitartrate * Allergy Headache Verified 09/17/21 12:32 [From Vicodin] fluticasone propionate * AdvReac Intermediate epistaxis Verified 09/17/21 12:32 [From Flonase] - Social History Does the pt smoke?: No Smoking Status: Never smoker Does the pt drink ETOH?: Yes Does the pt have substance abuse?: No - Immunizations Immunizations are current?: Yes PD ED PE NORMAL - Vitals Vital signs reviewed: Yes - General General: Alert and oriented X 3, No acute distress, Well developed/nourished - HEENT HEENT: Atraumatic, Pharynx benign - Neck Neck: Supple, no meningeal sign, No JVD - Cardiac Cardiac: RRR, No murmur - Respiratory Respiratory: No respiratory distress, Clear bilaterally - Abdomen Abdomen: Normal bowel sounds, Soft, Non tender, Non distended - Derm Derm: Normal color, Warm and dry - Extremities Extremities: No deformity, No tenderness to palpate, Normal ROM s pain - Neuro Neuro: Alert and oriented X 3 Eye Opening: Spontaneous Motor: Obeys Commands Verbal: Oriented GCS Score: 15 - Psych Psych: Normal mood, Normal affect Results - Vitals Vitals: Vital Signs - 24 hr 09/17/21 12:05 Temperature 38.3 C H Heart Rate 77 Respiratory 16 Rate Blood Pressure 112/70 O2 Saturation 94 Oxygen O2 Source Room air - Labs Labs: Laboratory Tests 09/17/21 09/17/21 12:10 12:10 WBC 2.2 L RBC 4.65 Hgb 12.8 Hct 39.9 MCV 85.8 MCH 27.5 MCHC 32.1 RDW 13.2 Plt Count 121 L MPV 9.9 Neut # (Auto) Not Reportable Lymph # (Auto) Not Reportable [place] # (Auto) Not Reportable Eos # (Auto) Not Reportable Baso # (Auto) Not Reportable Absolute Nucleated RBC Not Reportable Total Counted 100 Band Neuts % (Manual) 0 Reactive Lymphs % (Man) 2 Abnorm Lymph % (Manual) 0 Nucleated RBC % Not Reportable Neutrophils # (Manual) 1.7 Lymphocytes # (Manual) 0.4 L Monocytes # (Manual) 0.1 Eosinophils # (Manual) 0.0 Basophils # (Manual) 0.0 Differential Comment MANUAL DIFFERENTIAL Platelet Estimate NORMAL (130-450,000) Platelet Morphology NORMAL APPEARANCE RBC Morph Micro Appear NORMAL APPEARANCE Sodium 134 L Potassium 3.6 Chloride 98 L Carbon Dioxide 23 Anion Gap 13.0 BUN 8 Creatinine 0.6 Estimated GFR (MDRD) 103 Glucose 90 Calcium 8.8 Total Bilirubin 0.6 AST 33 ALT 22 Alkaline Phosphatase 64 Total Protein 7.1 Albumin 4.0 Globulin 3.1 Albumin/Globulin Ratio 1.3 Lipase 28 PD MEDICAL DECISION MAKING - ED course Complexity details: re-evaluated patient, d/w patient ED course: This is a 56-year-old female who presents with known Covid infection, unvaccinated, on approximately day 6 of illness. She is fatigued and nauseous but not hypoxic, labs are stable. She did consent verbally to monoclonal antibody therapy after discussion of the risk versus benefits and discussion of the emergency use authorization of this medication. Patient will be discharged home after monoclonal antibody therapy and was advised to continue supportive measures including rest, antipyretics, oral fluids and I will discharge her with antinausea medication. I reviewed return precautions with the patient in detail if she felt she was getting worse, having shortness of breath, chest pain or was not able to tolerate p.o. Departure - Departure Clinical Impression: Pneumonia due to COVID-19 virus Condition: Good Instructions: ED Viral Syndrome Prescriptions: Ondansetron Odt [Zofran] 4 mg TL Q6H PRN #10 tablet PRN Reason: Nausea / Vomiting Comments: You presented with a known Covid infection and symptoms related to your Covid illness. Fatigue, weakness, nausea, and shortness of breath or common symptoms of the Covid infection. We did obtain a x-ray which shows developing bilateral pneumonia which is often viral in the case of Covid and does not require antibiotics. Your labs and vital signs are stable and you are not requiring supplemental oxygen. We gave you some IV fluid as well as medications for your fever and nausea. We also discussed the use of monoclonal antibody therapy and you did consent to this infusion, as we discussed its in available under emergency use authorization only. This infusion may help reduce the progression of covid illness, but it does not immediately treat the illness. I expect you will remain fatigued and have similar symptoms for 1-2 additional weeks. You must rest at home, stay isolated from other people, and may continue ibuprofen or tylenol for fever or muscle/bone aches, and antinausea medicine for the nausea. Return to the ER if you feel your symptoms are worsening including increasing shortness of breath, chest pain, or you are unable to tolerated oral fluids. It is recommended that you still get the Covid vaccine and can do so anytime after you have recovered from your initial infection.
[2021-09-17 12:23] LABS: BASOPHILS % (AUTO) 0.5 %; HCT - HEMATOCRIT 39.9 % (37.0-47.0); HGB - HEMOGLOBIN 12.8 g/dL (12.0-16.0); LYMPHOCYTES % (AUTO) 18.6 %; MEAN CORPUSCULAR HEMOGLOBIN 27.5 pg (27.0-31.0); MEAN CORPUSCULAR HGB CONC 32.1 g/dL (32.0-36.0); MEAN CORPUSCULAR VOLUME 85.8 fL (81.0-99.0); MEAN PLATELET VOLUME 9.9 fL (7.9-10.8); MONOCYTES % (AUTO) 5.9 %; NEUTROPHILS % (AUTO) 74.5 %; PLT - PLATELET COUNT 121 10^3/uL (130-450); RED BLOOD COUNT 4.65 10^6/uL (4.20-5.40); RED CELL DISTRIBUTION WIDTH 13.2 % (12.0-15.0); WHITE BLOOD COUNT 2.2 x10^3/uL (4.8-10.8)
[2021-09-17 12:36] LABS: ALBUMIN/GLOBULIN RATIO 1.3 (1.0-2.2); BILIRUBIN,TOTAL 0.6 mg/dL (0.2-1.0); CALCIUM 8.8 mg/dL (8.5-10.3); CREATININE 0.6 mg/dL (0.4-1.0); POTASSIUM 3.6 mmol/L (3.5-5.0); TOTAL PROTEIN 7.1 g/dL (6.7-8.2)
[2021-09-17 12:40] LABS: ABNORMAL LYMPHS % (MANUAL) 0 %; BAND NEUTROPHILS % (MANUAL) 0 %
[2021-09-17 12:56] LABS: BASOPHILS % (MANUAL) 1 %; DIFFERENTIAL COMMENT MANUAL DIFFERENTIAL; LYMPHOCYTES # (MANUAL) 0.4 10^3/uL (1.5-3.5); LYMPHOCYTES % (MANUAL) 17 %; MONOCYTES # (MANUAL) 0.1 10^3/uL (0.0-1.0); NEUTROPHILS # (MANUAL) 1.7 10^3/uL (1.5-6.6); PLATELET ESTIMATE, MANUAL NORMAL (130-450,000) (NORMAL); PLATELET MORPHOLOGY NORMAL APPEARANCE (NORMAL); RBC MORPHOLOGY (MULTIPLE) NORMAL APPEARANCE (NORMAL); REACTIVE LYMPHS % (MANUAL) 2 %
[2021-09-17] MEDS ORDERED: SODIUM CHLORIDE 0.9% 1,000 ML IV STA (13:11)
[2021-09-17] MEDS ORDERED: ONDANSETRON 4 MG/2 ML VIAL IVP STA (13:11)
[2021-09-17] MEDS ORDERED: KETOROLAC 30 MG/ML VIAL IVP STA (13:12)
--- NOTE | 2021-09-17 13:31 | XRAY Report ---
PROCEDURE: Chest 1 View X-Ray INDICATIONS: chest pain TECHNIQUE: One view of the chest was acquired. COMPARISON: 09/26/2019 FINDINGS: Surgical changes and devices: None. Lungs and pleura: No pleural effusions or pneumothorax. Low lung volumes can be seen, causing a macroeconomics professor wded appearance to the lung markings. Patchy bilateral interstitial type infiltrates are seen. Mediastinum: Mediastinal contours appear normal. Heart size is normal. Bones and chest wall: No suspicious bony lesions. Overlying soft tissues appear unremarkable. IMPRESSION: Low lung volumes with bilateral patchy infiltrates are seen, which are consistent with the known clinical history of COVID pneumonia. Reviewed by: Fredy Maurice MD on 09/17/2021 12:29 PM [facility] Approved by: Fredy Maurice MD on 09/17/2021 12:29 PM [facility] Station ID: [id number]
[2021-09-17 13:52] LABS: CORONAVIRUS 229E-RESP PCR NOT DETECTED; CORONAVIRUS HKU1-RESP PCR NOT DETECTED; CORONAVIRUS NL63-RESP PCR NOT DETECTED; CORONAVIRUS OC43-RESP PCR NOT DETECTED
[2021-09-17 13:54] LABS: B. PARAPERTUSSIS- RESP PCR PAN NOT DETECTED; B. PERTUSSIS- RESP PCR PANEL NOT DETECTED; C. PNEUMONIAE- RESP PCR PANEL NOT DETECTED; HUMAN METAPNEUMOVIRUS NOT DETECTED; INFLUENZA A- RESP PCR PANEL NOT DETECTED; INFLUENZA B - RESP PCR PANEL NOT DETECTED; M. PNEUMONIAE- RESP PCR PANEL NOT DETECTED; PARAINFLUENZA VIRUS 1 NOT DETECTED; PARAINFLUENZA VIRUS 2 NOT DETECTED; PARAINFLUENZA VIRUS 3 NOT DETECTED; PARAINFLUENZA VIRUS 4 NOT DETECTED; RHINOVIRUS/ENTEROVIRUS NOT DETECTED; RSV- RESP PCR PANEL NOT DETECTED; SARS-CoV-2 -RESP PCR PANEL DETECTED
[2021-09-17] MEDS ORDERED: CASIRIVIMAB/IMDEVIMAB 10 ML in SODIUM CHLORIDE 0.9% 50 ML IV ONE (15:00)
[2021-09-17 15:25] VITALS: BP 106/76
== END 2021-09-17 15:51 | disposition home or self-care (01) ==
LOC: EDUNIT# → ED 11:55
DX: U07.1 COVID-19 (principal); J18.9 Pneumonia, unspecified organism
CPT/HCPCS: 0202U; 36415; 71045; 80053; 83690; 85025; 96374; 96375; 99283; 99284

== ENCOUNTER 2021-09-21 16:01 | Outpatient (CLI) | payer BC | END 2021-09-21 16:02 | disposition short-term general hospital (02) | LOC: EMS 16:01 | DX: U07.1 COVID-19 (principal); J12.82 Pneumonia due to coronavirus disease 2019 | CPT/HCPCS: A0425; A0429 ==

== ENCOUNTER 2021-10-04 11:44 | Outpatient (CLI) | payer BC ==
[2021-10-04 17:57] LABS: BASOPHILS # (AUTO) 0.1 10^3/uL (0.0-0.1); BASOPHILS % (AUTO) 1.3 %; EOSINOPHILS # (AUTO) 0.1 10^3/uL (0.0-0.7); EOSINOPHILS % (AUTO) 2.5 %; HCT - HEMATOCRIT 38.5 % (37.0-47.0); HGB - HEMOGLOBIN 11.6 g/dL (12.0-16.0); LYMPHOCYTES # (AUTO) 1.2 10^3/uL (1.5-3.5); LYMPHOCYTES % (AUTO) 27.4 %; MEAN CORPUSCULAR HEMOGLOBIN 27.4 pg (27.0-31.0); MEAN CORPUSCULAR HGB CONC 30.1 g/dL (32.0-36.0); MEAN PLATELET VOLUME 9.7 fL (7.9-10.8); MONOCYTES # (AUTO) 0.5 10^3/uL (0.0-1.0); MONOCYTES % (AUTO) 11.7 %; NEUTROPHILS # (AUTO) 2.5 10^3/uL (1.5-6.6); NEUTROPHILS % (AUTO) 56.7 %; PLT - PLATELET COUNT 376 10^3/uL (130-450); RED BLOOD COUNT 4.23 10^6/uL (4.20-5.40); RED CELL DISTRIBUTION WIDTH 13.4 % (12.0-15.0); WHITE BLOOD COUNT 4.5 x10^3/uL (4.8-10.8)
== END 2021-10-04 11:45 | disposition home or self-care (01) ==
LOC: LAB.N 11:44
PROVIDERS: ATTEND Nurse Practitioner
DX: U07.1 COVID-19 (principal)
CPT/HCPCS: 36415; 85025

== ENCOUNTER 2021-10-04 16:08 | Outpatient (CLI) | payer BC | END 2021-10-04 16:09 | disposition home or self-care (01) | LOC: DI.N 16:08 | PROVIDERS: ATTEND Nurse Practitioner | DX: U07.1 COVID-19 (principal) | CPT/HCPCS: 36415; 85025 ==

== ENCOUNTER 2021-10-06 16:38 | Outpatient (CLI) | payer BC ==
--- NOTE | 2021-10-06 17:18 | XRAY Report ---
PROCEDURE: Chest 2 View X-Ray INDICATIONS: PAIN TECHNIQUE: 2 view(s) of the chest. COMPARISON: September 17, 2021 FINDINGS: SUPPORT DEVICES: None. LUNGS/PLEURA: No focal consolidation, pleural effusion or space-occupying pneumothorax. MEDIASTINUM: The cardiomediastinal silhouette is within normal limits. BONES/SOFT TISSUES: No acute abnormality. IMPRESSION: 1.No acute cardiopulmonary abnormality. Reviewed by: Luis Das MD on 10/06/2021 5:17 PM [facility] Approved by: Luis Das MD on 10/06/2021 5:17 PM [facility] Station ID: [id number]
== END 2021-10-06 16:39 | disposition home or self-care (01) ==
LOC: DI.N 16:38
PROVIDERS: ATTEND Nurse Practitioner
DX: U07.1 COVID-19 (principal); J12.82 Pneumonia due to coronavirus disease 2019

== ENCOUNTER 2022-01-10 17:24 | Outpatient (CLI) | payer BC ==
--- NOTE | 2022-01-11 08:36 | XRAY Report ---
PROCEDURE: Chest 2 View X-Ray INDICATIONS: COVID-19 PNEUMONIA TECHNIQUE: 2 view(s) of the chest. COMPARISON: 10/06/2020 FINDINGS: Surgical changes and devices: None. Lungs and pleura: No pleural effusions or pneumothorax. Lungs are clear. Mediastinum: Mediastinal contours are normal. Heart size is normal. Bones and chest wall: No suspicious bony abnormalities. Soft tissues appear unremarkable. IMPRESSION: No acute cardiopulmonary process demonstrated radiographically. Reviewed by: Luis Huang MD on 01/11/2022 8:35 AM PST Approved by: Luis Huang MD on 01/11/2022 8:35 AM PST Station ID: [id number]
== END 2022-01-10 17:25 | disposition home or self-care (01) ==
LOC: DI.N 17:24
PROVIDERS: ATTEND Physician Assistant Medical
DX: U07.1 COVID-19 (principal); J12.82 Pneumonia due to coronavirus disease 2019

== ENCOUNTER 2022-10-26 14:33 | Outpatient (CLI) | payer BC ==
--- NOTE | 2022-10-26 17:02 | XRAY Report ---
PROCEDURE: Chest 2 View X-Ray INDICATIONS: INFLUENZA TECHNIQUE: 2 views of the chest were acquired. COMPARISON: 01/10/2022 FINDINGS: Surgical changes and devices: None. Lungs and pleura: No pleural effusions or pneumothorax. Lungs are clear. Mediastinum: Mediastinal contours are normal. Heart size is normal. Bones and chest wall: No suspicious bony abnormalities. Soft tissues appear unremarkable. IMPRESSION: No acute cardiopulmonary process demonstrated radiographically. Reviewed by: Luis Huang MD on 10/26/2022 5:01 PM [facility] Approved by: Luis Huang MD on 10/26/2022 5:01 PM PST Station ID: [id number]
== END 2022-10-26 14:34 | disposition home or self-care (01) ==
LOC: DI 14:33
PROVIDERS: ATTEND Physician Assistant Medical
DX: J11.89 Influenza due to unidentified influenza virus with other manifestations (principal); J45.909 Unspecified asthma, uncomplicated

== ENCOUNTER 2023-09-03 13:28 | Outpatient (CLI) | payer BC ==
--- NOTE | 2023-09-04 15:49 | Mammography Report ---
BILATERAL DIGITAL SCREENING MAMMOGRAM 3D/2D: 09/03/2023 CLINICAL: Routine screening. Comparison is made to exam dated: 06/09/2013 mammogram - [facility]. There are scattered areas of fibroglandular density in both breasts (category b / 25%-50% glandular t issue). There are benign calcifications in both breasts. No significant masses, calcifications, or other findings are seen in either breast. There has been no significant interval change. IMPRESSION: BENIGN There is no mammographic evidence of malignancy. A 1 year screening mammogram is recommended. Based on the Tyrer Cuzick model (a risk assessment model) the patients lifetime risk is 5.8% and her 10 year risk is 2.2%. According to the ACR, ACS, and NCCN guidelines, an annual breast MRI exam anat g with mammogram is recommended if the patients lifetime risk is 20% or greater. This exam was interpreted at Station ID: [id number]. NOTE: For mammograms, a report in lay terms will be sent to the patient. Approximately 15% of breast malignancies will not be visualized mammographically. In the management of a palpable breast mass, a negative mammogram must not discourage biopsy of a clinically suspicious lesion. Electronically Signed By: Marilynn diamond/denise:09/04/2023 10:07:45 letter sent: No_Letter ACR BI-RADS Category 2: Benign Finding(s) 3342F PARENCHYMAL PATTERN: (A) - The breast(s) demonstrate(s) scattered fibroglandular densities. BI-RADS CATEGORY: (2) - 2 Mammogram [id number] 1 year screening LATERALITY: (B)
== END 2023-09-03 13:29 | disposition home or self-care (01) ==
LOC: DI.N 13:28
DX: Z12.31 Encounter for screening mammogram for malignant neoplasm of breast (principal); R92.323 Mammographic fibroglandular density, bilateral breasts

== ENCOUNTER 2023-10-12 12:46 | Outpatient (CLI) | payer BC ==
--- NOTE | 2023-10-12 15:43 | DEXA Report ---
PROCEDURE: Dexa Spine and/or Hip INDICATIONS: POST MENOPAUSAL TECHNIQUE: Dual energy x-ray absorptiometry (DXA) was performed on a [employer] Performance System. Regions measur ed are the AP Spine, femoral neck, and if needed forearm. COMPARISON: None FINDINGS: Lumbar Spine: Bone Mineral Density 0.790 g/cm/cm,T score -3.2. Left Femoral Neck: Bone Mineral Density 0.718 g/cm/cm, T score -2.3. Left Hip: Bone Mineral Density 0.738 g/cm/cm,T score -2.1. (T score greater or equal to -1.0: NORMAL) (T score from -1.1 to -2.4: OSTEOPENIA) (T score less than or equal to -2.5 to: OSTEOPOROSIS) Impression: By WHO criteria, this patient has osteoporosis of the lumbar spine and osteopenia of the hip. Patients with diagnosis of osteoporosis or osteopenia should have regular bone mineral density assess ment. For those eligible for Medicare, routine testing is allowed once every 2 years. Testing frequ ency can be increased for patients who have rapidly progressing disease or for those who are receivin g medical therapy to restore bone mass. Reviewed by: Francisca Lafleur MD on 10/12/2023 3:42 PM PST Approved by: Francisca Lafleur MD on 10/12/2023 3:42 PM PST Station ID: [id number]
== END 2023-10-12 12:47 | disposition home or self-care (01) ==
LOC: DI 12:46
PROVIDERS: ATTEND Physician Assistant Medical
DX: M81.0 Age-related osteoporosis without current pathological fracture (principal); Z78.0 Asymptomatic menopausal state

== ENCOUNTER 2024-05-27 15:29 | Outpatient (CLI) | payer BC ==
--- NOTE | 2024-05-27 19:16 | XRAY Report ---
PROCEDURE: Chest 2V INDICATIONS: COUGH TECHNIQUE: 2 views of the chest were acquired. COMPARISON: 10/26/2022. FINDINGS: Surgical changes and devices: None. Lungs and pleura: No pleural effusions or pneumothorax. Lungs are clear. Mediastinum: Mediastinal contours appear normal. Heart size is normal. Bones and chest wall: No suspicious bony lesions. Overlying soft tissues appear unremarkable. IMPRESSION: No acute cardiopulmonary process. Reviewed by: Enrike Gibson MD on 05/27/2024 7:14 PM PDT Approved by: Enrike Gibson MD on 05/27/2024 7:14 PM PDT Station ID: [id number]
== END 2024-05-27 15:30 | disposition home or self-care (01) ==
LOC: DI 15:29
PROVIDERS: ATTEND Family Medicine
DX: R05.9 Cough, unspecified (principal)